=== PATIENT | male | born 1950 | race Caucasian/White ===

== ENCOUNTER 2018-04-03 13:10 | Emergency (ER) | payer OTHER ==
[2018-04-03 14:00] LABS: ADD MAN DIFF? NO
[2018-04-03] MEDS: morphine 4 MG/ML VIAL IV (14:07)
[2018-04-03 14:08] LABS: WHITE BLOOD COUNT 8.5 10^3/ul (4.8-10.8)
[2018-04-03 14:08] LABS: BASOPHIL # 0.1 10^3/ul (0.0-0.1); BASOPHILS % 0.6 % (0.0-2.0); EOSINOPHILS # 0.7 10^3/ul (0.0-0.5); EOSINOPHILS % 8.6 % (0.0-7.0); HEMATOCRIT 41.9 % (42.0-52.0); HEMOGLOBIN 14.1 g/dl (14.0-18.0); LYMPHOCYTES # 2.8 10^3/ul (0.8-2.9); LYMPHOCYTES % 33.3 % (15.0-51.0); MEAN CORPUSCULAR HEMOGLOBIN 31.2 pg (29.0-33.0); MEAN CORPUSCULAR HGB CONC 33.7 g/dl (32.0-37.0); MEAN CORPUSCULAR VOLUME 92.7 fl (82.0-101.0); MEAN PLATELET VOLUME 10.2 fl (7.4-10.4); MONOCYTE # 0.6 10^3/ul (0.3-0.9); MONOCYTES % 7.3 % (0.0-11.0); NEUTROPHIL # 4.2 10^3/ul (1.6-7.5); PLATELET COUNT 186 10^3/UL (140-415); RED BLOOD COUNT 4.52 10^6/ul (4.70-6.10); RED CELL DISTRIBUTION WIDTH 12.3 % (11.5-14.5)
[2018-04-03] MEDS: ONDANSETRON 4 MG INJ IV (14:08)
[2018-04-03 14:26] LABS: ALANINE AMINOTRANSFERASE 34 IU/L (13-69); ALBUMIN 4.3 g/dl (3.3-4.9); ALBUMIN/GLOBULIN RATIO 1.34; ALKALINE PHOSPHATASE 66 IU/L (42-121); ANION GAP 11 (8-16); ASPARTATE AMINO TRANSFERASE 32 IU/L (15-46); BILIRUBIN,INDIRECT 0.4 mg/dl (0-1.1); BILIRUBIN,TOTAL 0.4 mg/dl (0.2-1.3); BLOOD UREA NITROGEN 13 mg/dl (7-20); CALCIUM 9.4 mg/dl (8.4-10.2); CARBON DIOXIDE 27 mmol/L (21-31); CHLORIDE 106 mmol/L (97-110); CREATININE 0.97 mg/dl (0.61-1.24); GLUCOSE 100 mg/dl (70-220); LIPASE 102 U/L (23-300); POTASSIUM 4.1 mmol/L (3.5-5.1); SODIUM 140 mmol/L (135-144); TOTAL PROTEIN 7.5 g/dl (6.1-8.1)
[2018-04-03 14:27] LABS: INR 1.02; PROTIME 13.5 Sec (11.9-14.9); PT RATIO 1.1
[2018-04-03 14:38] LABS: TROPONIN-I 0.013 ng/ml (0.000-0.120)
[2018-04-03 17:12] LABS: ADD UMIC NO; UR ASCORBIC ACID NEGATIVE (NEGATIVE); UR BILIRUBIN (Dip) NEGATIVE (NEGATIVE); UR BLOOD (Dip) NEGATIVE (NEGATIVE); UR CLARITY CLEAR (CLEAR); UR COLOR YELLOW (YELLOW); UR GLUCOSE (Dip) NEGATIVE (NEGATIVE); UR KETONES (Dip) NEGATIVE (NEGATIVE); UR LEUKOCYTE ESTERASE (Dip) NEGATIVE Leu/ul (NEGATIVE); UR NITRITE (Dip) NEGATIVE (NEGATIVE); UR SPECIFIC GRAVITY (Dip) 1.012 (1.003-1.030); UR TOTAL PROTEIN (Dip) NEGATIVE (NEGATIVE); UR UROBILINOGEN (Dip) NEGATIVE (NEGATIVE)
== END 2018-04-03 18:59 | disposition home or self-care (01) ==
LOC: E/R 13:10
DX: R10.11 Right upper quadrant pain (principal); R40.2142 Coma scale, eyes open, spontaneous, at arrival to emergency department; R40.2252 Coma scale, best verbal response, oriented, at arrival to emergency department; R40.2362 Coma scale, best motor response, obeys commands, at arrival to emergency department; J45.909 Unspecified asthma, uncomplicated
CPT/HCPCS: 36415; 74176; 80053; 81003; 83690; 84484; 85025; 85610; 93005; 96374; 96375; 99285-25

== ENCOUNTER 2018-09-25 09:13 | Inpatient (IN) | payer OTHER ==
[2018-09-25] MEDS: LIDOCAINE 0.5% (MDV) 50 ML INJ
[~2018-09-25 09:13] MED LIST: DESFLURANE 15 MIN
[2018-09-25 10:35] LABS: ADD MAN DIFF? NO
[2018-09-25 10:39] LABS: BASOPHIL # 0.1 10^3/ul (0.0-0.1); BASOPHILS % 0.8 % (0.0-2.0); EOSINOPHILS # 1.2 10^3/ul (0.0-0.5); EOSINOPHILS % 13.7 % (0.0-7.0); HEMATOCRIT 41.9 % (42.0-52.0); HEMOGLOBIN 14.1 g/dl (14.0-18.0); LYMPHOCYTES # 2.2 10^3/ul (0.8-2.9); LYMPHOCYTES % 26.5 % (15.0-51.0); MEAN CORPUSCULAR HEMOGLOBIN 30.5 pg (29.0-33.0); MEAN CORPUSCULAR HGB CONC 33.7 g/dl (32.0-37.0); MEAN CORPUSCULAR VOLUME 90.7 fl (82.0-101.0); MEAN PLATELET VOLUME 10.5 fl (7.4-10.4); MONOCYTE # 0.5 10^3/ul (0.3-0.9); MONOCYTES % 6.2 % (0.0-11.0); NEUTROPHIL # 4.4 10^3/ul (1.6-7.5); NEUTROPHILS % 52.6 % (39.0-77.0); PLATELET COUNT 207 10^3/UL (140-415); RED BLOOD COUNT 4.62 10^6/ul (4.70-6.10); RED CELL DISTRIBUTION WIDTH 12.1 % (11.5-14.5)
[2018-09-25 10:39] LABS: WHITE BLOOD COUNT 8.5 10^3/ul (4.8-10.8)
[2018-09-25 11:00] LABS: ALANINE AMINOTRANSFERASE 41 IU/L (13-69); ALBUMIN 4.2 g/dl (3.3-4.9); ALBUMIN/GLOBULIN RATIO 1.27; ALKALINE PHOSPHATASE 85 IU/L (42-121); ANION GAP 11 (5-13); ASPARTATE AMINO TRANSFERASE 35 IU/L (15-46); BILIRUBIN,INDIRECT 0.2 mg/dl (0-1.1); BILIRUBIN,TOTAL 0.2 mg/dl (0.2-1.3); BLOOD UREA NITROGEN 18 mg/dl (7-20); CALCIUM 9.5 mg/dl (8.4-10.2); CARBON DIOXIDE 25 mmol/L (21-31); CHLORIDE 107 mmol/L (97-110); CREATININE 0.94 mg/dl (0.61-1.24); Estimated GFR > 60 mL/min (>60); GLUCOSE 103 mg/dl (70-220); SODIUM 143 mmol/L (135-144); TOTAL PROTEIN 7.5 g/dl (6.1-8.1)
[2018-09-25 11:04] LABS: INR 0.98; PROTIME 13.1 Sec (11.9-14.9)
[2018-09-25 11:05] LABS: PARTIAL THROMBOPLASTIN TIME 30.7 Sec (23.0-35.0)
[2018-09-25] MEDS ORDERED: THROMBIN 5000 UNIT VIAL (11:22)
[2018-09-25] MEDS ORDERED: ONDANSETRON 4 MG INJ (12:00)
[2018-09-25] MEDS ORDERED: HYDROmorphONE 1 MG/5 ML IV SYRINGE IV ×2 (12:00)
[2018-09-25] MEDS ORDERED: METOCLOPRAMIDE 10 MG INJ (12:00)
[2018-09-25] MEDS ORDERED: MIDAZOLAM 1 MG/ML 2 ML INJ (12:00)
[2018-09-25] MEDS ORDERED: MEPERIDINE 25 MG INJ IV (12:00)
[2018-09-25] MEDS ORDERED: ROCURONIUM 50 MG INJ ×2 (12:00→12:59)
[2018-09-25] MEDS ORDERED: ONDANSETRON 4 MG INJ IV (12:00)
[2018-09-25] MEDS ORDERED: PROPOFOL 20 ML (12:00)
[2018-09-25] MEDS ORDERED: DIPHENHYDRAMINE 50 MG INJ IV (12:00)
[2018-09-25] MEDS ORDERED: HYDROmorphONE 2 MG/ML SYG (12:18)
[2018-09-25] MEDS ORDERED: GELATIN SIZE 100 SPONGE (12:19)
[2018-09-25] MEDS ORDERED: CEFAZOLIN 1 GM INJ (12:26)
[2018-09-25] MEDS ORDERED: METOPROLOL 5 MG INJ (12:26)
[2018-09-25] MEDS: GELATIN SIZE 100 SPONGE (12:44)
[2018-09-25] MEDS: POLYMYXIN/BACITRACIN 1L IRRIG (12:44)
[2018-09-25] MEDS: LIDOCAINE 1%/EPI (1:100,000) (MDV) 20 ML (12:44)
[2018-09-25] MEDS ORDERED: EPHEDrine SULFATE 50 MG/5 ML SYG (12:59)
[2018-09-25] MEDS ORDERED: GLYCOPYRROLATE 0.4 MG INJ (14:27)
[2018-09-25] MEDS ORDERED: NEOSTIGMINE 3 MG/3 ML SYRINGE (14:27)
[2018-09-25] MEDS ORDERED: morphine 2 MG INJ IV (14:30)
[2018-09-25] MEDS: DEXTROSE 5%-LR 1,000 ML IV ×2 (14:30→21:45)
[2018-09-25] MEDS: HYDROmorphONE 1 MG/5 ML IV SYRINGE IV ×2 (14:54→15:11)
[2018-09-25 17:42] LABS: ADD UMIC NO; UR ASCORBIC ACID NEGATIVE (NEGATIVE); UR BILIRUBIN (Dip) NEGATIVE (NEGATIVE); UR BLOOD (Dip) NEGATIVE (NEGATIVE); UR CLARITY CLEAR (CLEAR); UR COLOR YELLOW (YELLOW); UR GLUCOSE (Dip) NEGATIVE (NEGATIVE); UR KETONES (Dip) NEGATIVE (NEGATIVE); UR LEUKOCYTE ESTERASE (Dip) NEGATIVE Leu/ul (NEGATIVE); UR NITRITE (Dip) NEGATIVE (NEGATIVE); UR TOTAL PROTEIN (Dip) NEGATIVE (NEGATIVE); UR UROBILINOGEN (Dip) NEGATIVE (NEGATIVE)
[2018-09-25] MEDS: HYDROCODONE/APAP (7.5/325) TAB PO (18:33)
[2018-09-25] MEDS ORDERED: CEFAZOLIN 1 GM/50 ML (PMX) 50 ML IVPB (20:43)
[2018-09-25] MEDS: CEFAZOLIN 1 GM/50 ML (PMX) 50 ML IVPB (20:46)
[2018-09-25] MEDS: morphine 4 MG/ML VIAL IV (22:09)
[2018-09-26] MEDS: morphine 4 MG/ML VIAL IV ×4 (02:50→18:13)
[2018-09-26] MEDS: DEXTROSE 5%-LR 1,000 ML IV ×3 (05:17→17:33)
[2018-09-26] MEDS: CEFAZOLIN 1 GM/50 ML (PMX) 50 ML IVPB ×3 (05:35→23:01)
[2018-09-26] MEDS: ONDANSETRON 4 MG INJ IV (12:37)
[2018-09-26] MEDS: traMADol-APAP 37.5-325 1 TAB PO (17:10)
[2018-09-26] MEDS ORDERED: ALBUTEROL/IPRATROPIUM (NEB) 3 ML AMP HHN (21:30)
[2018-09-27] MEDS: DEXTROSE 5%-LR 1,000 ML IV (01:25)
[2018-09-27 05:52] LABS: ADD MAN DIFF? NO
[2018-09-27 06:05] LABS: WHITE BLOOD COUNT 12.5 10^3/ul (4.8-10.8)
[2018-09-27 06:05] LABS: BASOPHILS % 0.3 % (0.0-2.0); EOSINOPHILS # 1.2 10^3/ul (0.0-0.5); EOSINOPHILS % 9.9 % (0.0-7.0); HEMATOCRIT 38.3 % (42.0-52.0); HEMOGLOBIN 12.4 g/dl (14.0-18.0); LYMPHOCYTES # 2.3 10^3/ul (0.8-2.9); LYMPHOCYTES % 18.6 % (15.0-51.0); MEAN CORPUSCULAR HEMOGLOBIN 30.5 pg (29.0-33.0); MEAN CORPUSCULAR HGB CONC 32.4 g/dl (32.0-37.0); MEAN CORPUSCULAR VOLUME 94.1 fl (82.0-101.0); MEAN PLATELET VOLUME 10.6 fl (7.4-10.4); MONOCYTE # 1.1 10^3/ul (0.3-0.9); MONOCYTES % 8.5 % (0.0-11.0); NEUTROPHIL # 7.8 10^3/ul (1.6-7.5); NEUTROPHILS % 62.5 % (39.0-77.0); PLATELET COUNT 172 10^3/UL (140-415); RED BLOOD COUNT 4.07 10^6/ul (4.70-6.10); RED CELL DISTRIBUTION WIDTH 12.3 % (11.5-14.5)
[2018-09-27] MEDS: KETOROLAC 30 MG INJ IV (06:15)
[2018-09-27] MEDS: PANTOPRAZOLE (EC) 40 MG TAB PO (06:15)
[2018-09-27] MEDS: CEFAZOLIN 1 GM/50 ML (PMX) 50 ML IVPB ×3 (06:17→21:18)
[2018-09-27 06:29] LABS: ANION GAP 3 (5-13); BLOOD UREA NITROGEN 11 mg/dl (7-20); CALCIUM 8.9 mg/dl (8.4-10.2); CARBON DIOXIDE 32 mmol/L (21-31); CHLORIDE 107 mmol/L (97-110); CREATININE 0.88 mg/dl (0.61-1.24); Estimated GFR > 60 mL/min (>60); GLUCOSE 102 mg/dl (70-220); POTASSIUM 3.8 mmol/L (3.5-5.1); SODIUM 142 mmol/L (135-144)
[2018-09-27] MEDS: DOCUSATE SODIUM 100 MG CAP PO (08:56)
[2018-09-27] MEDS: traMADol-APAP 37.5-325 1 TAB PO ×3 (08:56→21:16)
[2018-09-27] MEDS: ACETAMINOPHEN 500 MG TAB PO (14:07)
[2018-09-28] MEDS: PANTOPRAZOLE (EC) 40 MG TAB PO (06:13)
[2018-09-28] MEDS: ACETAMINOPHEN 500 MG TAB PO (06:13)
[2018-09-28] MEDS: CEPASTAT LOZENGE MT ×2 (07:18→20:05)
[2018-09-28] MEDS: DOCUSATE SODIUM 100 MG CAP PO ×2 (07:19→20:05)
[2018-09-28] MEDS: traMADol 50 MG TAB PO ×3 (07:19→20:45)
[2018-09-28] MEDS: BISACODYL (EC) 5 MG TAB PO (17:47)
[2018-09-28] MEDS: ONDANSETRON 4 MG INJ IV (21:21)
[2018-09-28] MEDS: MAGNESIUM HYDROXIDE 30ML CUP PO (23:09)
[2018-09-28] MEDS: PANTOPRAZOLE 40 MG INJ IV (23:09)
[2018-09-29] MEDS: PANTOPRAZOLE (EC) 40 MG TAB PO (05:41)
[2018-09-29] MEDS: BISACODYL (EC) 5 MG TAB PO (05:41)
[2018-09-29] MEDS: MAGNESIUM HYDROXIDE 30ML CUP PO (06:19)
[2018-09-29] MEDS: ACETAMINOPHEN 500 MG TAB PO (09:03)
[2018-09-29] MEDS: BISACODYL 10 MG SUPP PR (09:03)
[2018-09-29] MEDS: DOCUSATE SODIUM 100 MG CAP PO (09:03)
[2018-09-29] MEDS: traMADol 50 MG TAB PO ×2 (09:07→15:19)
== END 2018-09-29 16:47 | disposition home or self-care (01) | DRG 460 ==
LOC: REC 09:13 → MS1 15:57
PROC: 0SG0071 Fusion of Lumbar Vertebral Joint with Autologous Tissue Substitute, Posterior Approach, Posterior Column, Open Approach (ICD-10-PCS; principal; 2018-09-25 11:30)
DX: M43.16 Spondylolisthesis, lumbar region (principal); M47.9 Spondylosis, unspecified; M48.061 Spinal stenosis, lumbar region without neurogenic claudication; G82.20 Paraplegia, unspecified
CPT/HCPCS: 72100; 80048; 80053; 81003; 85025; 85610; 85730; 86850; 86900; 86901; 87086; 97116; 97161; 97165; 97530